=== PATIENT | female | born 1990 | race Caucasian/White ===

== ENCOUNTER 2021-04-13 18:10 | Emergency (ER) | payer BC ==
[2021-04-13 22:48] LABS: HEMOGLOBIN 14.1 gm/dl (12.3-15.3); RED BLOOD COUNT 5.05 M/UL (4.00-5.10); WHITE BLOOD COUNT 10.7 K/UL (4.5-11.0)
[2021-04-13 23:06] LABS: BUN/CREATININE RATIO 9 (0-10)
[2021-04-14] MEDS ORDERED: ZOFRAN ODT 4 MG4 MG SL (00:04)
== END 2021-04-14 00:40 | disposition home or self-care (01) ==
LOC: ER1 18:10
PROVIDERS: Physician Assistant Medical
DX: R10.9 Unspecified abdominal pain (principal); R10.817 Generalized abdominal tenderness; Z90.49 Acquired absence of other specified parts of digestive tract
CPT/HCPCS: 80053; 81001; 83605; 84703; 85025; 99283